=== PATIENT | female | born 1985 | race Hispanic/Latino ===

== ENCOUNTER 2017-05-15 06:05 | Day surgery (SDC) | payer BC ==
[2017-05-14 13:42] VITALS: BMI 35.2
[2017-05-15] MEDS ORDERED: Lidocaine 1% PF 5 ML VIAL ONE (08:31)
[2017-05-15] MEDS ORDERED: Propofol 200 MG/20 ML VIAL ONE (08:31)
--- NOTE | 2017-05-15 14:16 | OP ---
DATE OF SURGERY: 05/15/2017 SURGEON: Barbara Fabian M.D. OPERATIVE PROCEDURE: Esophagogastroduodenoscopy with biopsy. PREOPERATIVE DIAGNOSES: A 31-year-old female with abdominal pain and nausea over the last several m onths. The pain is over the epigastric area and burning in nature. She has nausea off and on. The patient is undergoing esophagogastroduodenoscopy. POSTOPERATIVE DIAGNOSES: 1. Normal esophageal mucosa. 2. Normal duodenum. 3. Mild mucosal hyperemia over the gastric antrum. Overall, the exam is benign and does not show a ny findings to explain abdominal pain. PROCEDURE IN DETAIL: The patient was placed on her left lateral position and was given sedation by Anesthesia Department. A [employer]ax video gastroscope under direct vision was passed down the oropharyn x past the GE junction, into the stomach and subsequently into the descending duodenum. The esophag eal mucosa appeared normal throughout the esophagus. The GE junction, no pathology seen. Retroflex ion of the scope in the stomach failed to show any lesions in the fundus or cardia. The gastric bod y, no pathology seen. The gastric antrum again no pathology except for mild mucosal hyperemia. Ran dom biopsies from the antrum and gastric body. The duodenal bulb and descending duodenum, no pathol ogy seen. The stomach was decompressed and the scope removed. DISCHARGE PLANNING: This is a 31-year-old [place] female with abdominal pain came in for EGD . The EGD was basically negative. DISCHARGE RECOMMENDATIONS: We will try Bentyl 10 mg p.o. twice a day. The patient will come back t o me next week for a followup visit.
== END 2017-05-15 09:30 | disposition home or self-care (01) ==
LOC: SDC 06:05
PROVIDERS: ATTEND Internal Medicine Gastroenterology
PROC: 0DB68ZX Excision of Stomach, Via Natural or Artificial Opening Endoscopic, Diagnostic (ICD-10-PCS; principal; 2017-05-15)
DX: R10.13 Epigastric pain (principal); R11.0 Nausea; Z90.49 Acquired absence of other specified parts of digestive tract
CPT/HCPCS: 88305; 88312; J2001; J2704